=== PATIENT | female | born 1975 | race Caucasian/White ===

== ENCOUNTER 2021-01-18 13:12 | Emergency (ER) | payer SELFPAY ==
[2021-01-18 14:00] VITALS: BP 139/62; PULSE 67; RESP 14; TEMP 37.2; O2SAT 98
--- NOTE | 2021-01-18 14:06 | W.ED.GENAD ---
Discharge Plan Disposition Patient Disposition: HOME Condition: Stable Discharge Details Clinical Impression: Acute lumbar back pain, Sciatica Primary Care Provider: None,None ED Provider: Es Alvarado Home Meds and New Rx's Prescriptions: New cyclobenzaprine 10 mg tablet 10 mg PO TID PRN (Reason: muscle spasm) Qty: 14 RF: 0 Continued multivitamin 1 EACH tablet 1 tab PO DAILY RF: 0 ibuprofen [Ibuprofen IB] 200 MG tablet 400 mg PO PRN PRNRF: 0 cyclobenzaprine 10 MG tablet 10 mg PO Q8H PRNQty: 12 RF: 0 Discharge Instructions Instructions: Sciatica (ED), Low Back Strain (ED) Additional Instructions: Your history and exam are most concerning for muscle spasm and primary care. Please encourage gentle stretching, please continue with your therapy exercises previously given. Please encourage hydration. You may use Tylenol and/or ibuprofen as needed for discomfort. Please take the Flexeril as needed for spasms. Do not drive while taking this medication as it can be sedating. If you develop fever/chills, have a change in bowel or bladder habits, weakness or other new/worsening symptoms please seek care urgently once again. Otherwise follow-up with primary care next week for reevaluation. Referrals: Feli Fields NP [NURSE PRACTITIONER] - Discharge Data Discharge Date/Time-TO BE ENTERED AT DEPARTURE: 01/18/21 14:36 Medical Decision Making Patient is a pleasant 45-year-old female presenting today with chief complaint of left-sided back pain that radiates down the posterior aspect of the left leg. She reports that she has lumbar pain and sciatica historically. 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 However, the pain has not improved over the past week and increased yesterday more home cleaning. She denies any fevers or chills. No change in bowel or bladder habits. No weakness. No sensory deficit. Denies any recent trauma. States that typically when her pain gets like that she requires Flexeril and that helps to get over the acute bout of discomfort. On exam, patient appears not. She hemodynamically stable. No midline tenderness. She is point tender over the left paraspinal region with muscle spasm appreciated. She does have full range of motion but pain is elicited primarily with rotation to the left. No saddle paresthesias, strength is intact and equal bilaterally in lower extremities. Negative straight leg raise. Patient understood treatment plan. She is requesting refill of Flexeril which I feel is appropriate. She did drive herself. They will hold off on dosing currently. We will send to her pharmacy. Encourage gentle stretching. She does have physical therapy exercises at home and declines repeat referral to PT. She will continue with her Tylenol and ibuprofen. Advise follow-up with primary care next week for reevaluation. Return precautions were discussed. All questions and concerns were addressed at this time. Patient has no primary care physician listed in her chart. However she states that she is goes to [facility] by whoever will see me. Reports that she was scheduled to follow-up in 1 week but could not wait secondary to pain. HPI General Mode of arrival: ambulatory. Date/Time Provider Initiated Documentation: 01/18/21 14:06. Limitations to Documentation: no limitations. Information obtained by: patient, RN notes reviewed and old records reviewed. History of Present Illness 45 year old F presents to the emergency department with the chief complaint of left sided lower back pain, described as moderate and similar to prior episodes (hx of lumbar pain with sciatica), with intensity rated at 7. Quality is described as aching, and is localized to the back. Patient extremity. Patient started experiencing this week(s) (1) and it has been constant. Immobilization improves symptom(s), Movement worsens symptoms . Patient notes no other symptoms.. Patient did receive the following treatments prior to arrival, NSAID and other (APAP and patch) Related Data Home Medications Medication Instructions Recorded Confirmed ibuprofen [Ibuprofen IB] 400 mg PO PRN PRN 12/31/14 01/18/21 multivitamin 1 tab PO DAILY 12/31/14 01/18/21 cyclobenzaprine 10 mg PO Q8H PRN #12 tab 08/30/16 cyclobenzaprine 10 mg PO TID PRN #14 tab 01/18/21 Previous Rx's Medication Instructions Recorded cyclobenzaprine 10 mg PO Q8H PRN #12 tab 08/30/16 cyclobenzaprine 10 mg PO TID PRN #14 tab 01/18/21 Allergies Allergy/AdvReac Type Severity Reaction Status Date / Time oxycodone [Oxycodone] AdvReac Intermediate vomiting Unverified 01/18/21 14:05 Penicillins AdvReac Intermediate vomiting Unverified 01/18/21 14:05 General Stated Complaint: Nk/Back Pain KOMAL: 3 Review of Systems Constitutional Constitutional: Reports as per HPI, Denies chills, Denies fatigue, Denies fever(s) and Denies frequent falls Cardiovascular Cardiovascular: Denies chest pain, Denies dyspnea and Denies dyspnea on exertion Respiratory Respiratory: Denies cough, Denies dyspnea and Denies dyspnea on exertion Gastrointestinal Gastrointestinal: Denies abdominal pain, Denies change in bowel habits and Denies fecal incontinence Genitourinary Genitourinary: Reports as per HPI, Denies urinary incontinence and Denies urinary hesitancy Musculoskeletal Musculoskeletal: Reports as per HPI, Reports back pain, Denies muscle weakness, Denies numbness, Reports radiating pain into limb, Reports stiffness and Denies tingling Integumentary/Breasts Skin/Breast: Reports as per HPI and Denies rash Neurologic Neurologic: Reports as per HPI, Denies frequent falls, Denies localized weakness, Denies numbness, Denies radicular pain, Denies sensory deficit, Denies tingling and Denies paresthesias Endocrine Endocrine: Denies fatigue PFSH Social History Smoking/Tobacco Use Status: Current every day Smoking risk assessment performed?: Yes Drug use: Never Do you feel safe in your relationship?: Yes Exam Const General: cooperative, healthy appearing, comfortable, no acute distress, well developed and well groomed Nutritional Appearance: average body habitus and well nourished Orientation: alert and awake Eyes General: appearance normal, both eyes and all related structures Neck Neck: normal visual inspection, full ROM, no lymphadenopathy and no meningeal signs Resp Effort & Inspection: normal respiratory effort and able to speak in complete sentences Auscultation: clear to auscultation bilaterally, no rales, no rhonchi and no wheezes Cardio Rate: regular rate Rhythm: regular rhythm Heart Sounds: S1 normal and S2 normal GI Inspection: normal to inspection Palpation: nontender Back/Spine/Pelvis Back: no CVA tenderness Cervical Spine: cervical ROM normal, No cervical muscular tenderness, No pain with cervical ROM and No step off deformity Thoracic/Lumbar Spine: thoracic and lumbar spine normal to inspection, thoraco-lumbar ROM normal (tenderness with rotation to the left), No mass, paraspinal tenderness (left side), thoraco-lumbar spasm (spasm along left side of lumbar spine), No thoracic spinal tenderness and No lumbar spinal tenderness Pelvis: no pain with anterior-posterior compression Sacroiliac joints: bilaterally nontender Skin General skin exam: no rashes or lesions noted Neuro General: patient alert and patient awake Cognition: normal cognition Speech: speech normal Gait: normal gait Motor: muscle tone normal throughout, strength 5/5 throughout, no movement abnormalities noted and no fasciculations Sensory Exam: no sensory deficits noted (no saddle paresthesias) DTR's: Rt Patellar: 2+, Lt Patellar: 2+, Rt Ankle: 2+ and Lt Ankle: 2+ Extrem General: normal to inspection, full ROM, capillary refill normal, no joint enlargement, no pedal edema, no calf tenderness and normal gait Psych Appearance: grossly normal and well kempt Mental Status: mental status grossly normal Speech and Movement: speech and movement normal Course Vital Signs Vital signs: Vital Signs Temperature 37.2 C 01/18/21 14:00 Pulse 67 01/18/21 14:00 Respiratory Rate 14 01/18/21 14:00 Blood Pressure 139/62 01/18/21 14:00 Pulse Oximetry 98 01/18/21 14:00 Temperature 37.2 C 01/18/21 14:00 Temperature Source Skin 01/18/21 14:00 Pulse 67 01/18/21 14:00 Respiratory Rate 14 01/18/21 14:00 Blood Pressure 139/62 01/18/21 14:00 Blood Pressure Position Sitting 01/18/21 14:00 Pulse Oximetry 98 01/18/21 14:00 Oxygen Delivery Method Room Air 01/18/21 14:00 Oxygen Flow Rate 0 01/18/21 14:00 Pain Level 7 01/18/21 14:00 Comment 01/18/21 14:00
== END 2021-01-18 14:36 | disposition home or self-care (01) ==
PROVIDERS: Emergency Provider Physician Assistant
DX: M54.42 Lumbago with sciatica, left side (principal)
CPT/HCPCS: 99283; 99284

== ENCOUNTER 2024-01-12 17:00 | Emergency (ER) | payer BC, SELFPAY ==
--- NOTE | 2024-01-12 17:00 | DI.RAD_ITS ---
Exam(s) XR CHEST 2V PA LATERAL EXAM: XR CHEST 2V PA LATERAL CLINICAL HISTORY: right sided pain. TECHNIQUE: 2D digital imaging was performed. COMPARISON: No exams were available for comparison FINDINGS: 2 views: Heart size is normal. The mediastinum is not widened. Lungs are clear. No infiltrates nor pleural effusions. IMPRESSION: No acute pulmonary findings. DATA REPOSITORY: RADIATION DOSE DELIVERED:
--- NOTE | 2024-01-12 17:00 | DI.RAD_ITS ---
Exam(s) XR THORACIC SPINE COMPLETE EXAM: XR THORACIC SPINE COMPLETE CLINICAL HISTORY: pain. TECHNIQUE: 2D digital imaging was performed. COMPARISON: No exams were available for comparison FINDINGS: 3 views No evidence of compression fractures nor listhesis. Mild disc space narrowing noted in the midthorac ic spine levels and there are left-sided bridging osteophytes at T6-7, T7-8, and T8-9 levels.. Also degenerative disc disease noted in the partially included cervical spine at probably C5-6 level. There is no scoliosis abnormal widening of the paraspinal lines in the thoracic spinal column. Bone density appears normal. No osseous lesions evident. IMPRESSION: No fractures nor osseous lesions. Degenerative disc disease as above. DATA REPOSITORY: RADIATION DOSE DELIVERED:
[2024-01-12 17:02] VITALS: BP 143/88; PULSE 89; RESP 18; TEMP 35.8; O2SAT 94
--- NOTE | 2024-01-12 17:13 | ED.GENADUL_ITS ---
Discharge Plan Disposition Patient Disposition: Home Condition: Stable Discharge Details Clinical Impression: Upper back pain Primary Care Provider: Unknown,Unknown ED Provider: Bart Brantley Home Meds and New Rx's Prescriptions: New cyclobenzaprine 10 mg tablet 10 mg PO TID PRNQty: 20 0RF Continued multivitamin 1 EACH tablet 1 tab PO DAILY ibuprofen [Ibuprofen IB] 200 MG tablet 400 mg PO PRN PRN Discharge Instructions Additional Instructions: Your x-rays did not show any concerning findings You can take 1000 mg of acetaminophen and 600 mg of ibuprofen every 6 hours as needed Do not drive or drink alcohol if you take the cyclobenzaprine If not better within a week follow-up with your primary care provider If you feel more ill or have new symptoms such as high fevers or severe worsening pain return to the emergency department for reevaluation HPI General Mode of arrival: ambulatory . Date/Time Provider Initiated Documentation: 01/12/24 17:03 . Limitations to Documentation: no limitations . Information obtained by: patient . History of Present Illness 48 year old F presents to the emergency department with the chief complaint of upper back pain, described as moderate, Quality is described as aching, Patient started experiencing this week(s) (1) and it has been constant. Rest improves symptom(s), Movement worsens symptoms . Patient notes no other symptoms.. Related Data Home Medications ?Medication ?Instructions ?Recorded ?Confirmed ibuprofen 200 mg tablet (Ibuprofen 400 mg PO PRN PRN 12/31/14 01/12/24 IB) multivitamin 1 tab PO DAILY 12/31/14 01/12/24 cyclobenzaprine 10 mg tablet 10 mg PO TID PRN #20 tabs 01/12/24 Previous Rx's ?Medication ?Instructions ?Recorded cyclobenzaprine 10 mg tablet 10 mg PO TID PRN #20 tabs 01/12/24 Allergies Allergy/AdvReac Type Severity Reaction Status Date / Time oxycodone (Oxycodone) AdvReac Intermediate vomiting Unverified 09/29/22 16:07 Penicillins AdvReac Intermediate vomiting Unverified 09/29/22 16:07 General Stated Complaint: Nk/Back Pain KOMAL: 4 Review of Systems All systems reviewed & are unremarkable except as noted in HPI and below Constitutional Constitutional: Denies chills, Denies fever(s) and Denies weakness Cardiovascular Cardiovascular: Denies chest pain and Denies dyspnea Respiratory Respiratory: Denies cough and Denies dyspnea Gastrointestinal Gastrointestinal: Denies abdominal pain, Denies nausea and Denies vomiting Musculoskeletal Musculoskeletal: Reports back pain and Denies joint swelling Neurologic Neurologic: Denies weakness Exam Const General: no acute distress Orientation: alert HENSC Head: normal to inspection Ears: external ears normal General nose exam: external nose normal Mouth: moist mucous membranes Eyes General: appearance normal, both eyes and all related structures Neck Neck: normal visual inspection Chest Chest: normal inspection of the chest Resp Effort & Inspection: normal respiratory effort and able to speak in complete sentences Auscultation: clear to auscultation bilaterally Cardio Jugular venous pressure: no JVD Rate: regular rate Heart Sounds: no murmurs GI Palpation: soft and nontender Back/Spine/Pelvis Back: No CVA tenderness, No erythema and No warmth Skin General skin exam: no rashes or lesions noted Neuro General: patient alert and patient oriented x3 Extrem General: normal to inspection Psych Mental Status: mental status grossly normal Course Vital Signs Vital signs: Vital Signs Temperature 35.8 C L 01/12/24 17:02 Pulse 89 01/12/24 17:02 Respiratory Rate 18 01/12/24 17:02 Blood Pressure 143/88 H 01/12/24 17:02 Pulse Oximetry 94 01/12/24 17:02 Temperature 35.8 C L 01/12/24 17:02 Temperature Source Temporal Artery Scan 01/12/24 17:02 Pulse 89 01/12/24 17:02 Respiratory Rate 18 01/12/24 17:02 Blood Pressure 143/88 H 01/12/24 17:02 Blood Pressure Position Sitting 01/12/24 17:02 Pulse Oximetry 94 01/12/24 17:02 Oxygen Delivery Method Room Air 01/12/24 17:02 Oxygen Flow Rate 0 01/12/24 17:02 Medical Decision Making 48-year-old female denies any chronic medical problems comes in with complaints of right upper back pain. She has been going on for a week and denies any known trauma. She says when she moves her right arm that the pain increases. She localizes the pain to the right upper back, has no erythema or warmth. There is no midline tenderness. There is no step-off deformities. No visible or palpable deformities. Her lungs are clear, she otherwise appears well. She denies IV drug use, no fevers. She has no complaints of paresthesias and has a normal neurological exam. Suspect musculoskeletal back pain will obtain x-rays to exclude entities such as pathological fracture. She is no findings on history or exam to suggest entities such as spinal cord compression or spinal epidural abscess do not feel emergent MRI imaging indicated. Both x-rays show no acute findings. Patient stable, I suspect musculoskeletal back pain. She is stable for discharge and will follow-up with her PCP if not improving and return precautions given Differential Diagnosis Differential Diagnosis: Spasm, strain Quality:SDOH Health Related Social Needs: No Data to Display PFSH All Active Problems (Updated 01/12/24 @ 17:51 by Bart Brantley MD) Upper back pain (Acute) Acute lumbar back pain (Acute) Sciatica (Acute) Social History Smoking/Tobacco Use Status: Current every day Smoking risk assessment performed?: Yes Drug use: Never Housing: house Do you feel safe in your relationship?: Yes
[2024-01-12] MEDS: Ibuprofen 600 MG TAB PO (17:17)
== END 2024-01-12 18:00 | disposition home or self-care (01) ==
LOC: ER 17:58
PROVIDERS: Emergency Provider Emergency Medicine
DX: M54.9 Dorsalgia, unspecified (principal)
CPT/HCPCS: 99284; 71046; 72072; 99283